=== PATIENT | female | born 1965 | race Caucasian/White ===

== ENCOUNTER → 2024-01-24 18:40 | Outpatient (REF) | payer BC, SELFPAY | LOC: WDC 18:40 | PROVIDERS: ATTENDING PHYSICIAN Family Medicine | DX: Z12.31 Encounter for screening mammogram for malignant neoplasm of breast (principal) | CPT/HCPCS: 77063; 77067 ==

== ENCOUNTER → 2024-05-27 07:33 | Outpatient (REF) | payer BC, SELFPAY | LOC: WDC 07:33 | PROVIDERS: ATTENDING PHYSICIAN Family Medicine | DX: R92.2 Inconclusive mammogram (principal) | CPT/HCPCS: 76641 ==

== ENCOUNTER → 2024-11-13 17:06 | Outpatient (REF) | payer BC, SELFPAY | LOC: RAD 17:06 | PROVIDERS: ATTENDING PHYSICIAN Family Medicine | DX: R19.7 Diarrhea, unspecified (principal); R10.32 Left lower quadrant pain | CPT/HCPCS: 74177; Q9967 ==

== ENCOUNTER → 2025-02-09 07:28 | Outpatient (REF) | payer BC, SELFPAY | LOC: WDC 07:28 | PROVIDERS: ATTENDING PHYSICIAN Student in an Organized Health Care Education/Training Program | DX: Z12.31 Encounter for screening mammogram for malignant neoplasm of breast (principal) | CPT/HCPCS: 77063; 77067 ==